=== PATIENT | female | born 1950 | race Caucasian/White ===

== ENCOUNTER 2023-04-21 09:17 | Emergency (ER) | payer OTHER ==
[~2023-04-21] VITALS: Ht 157.5 cm; Wt 85.3 kg
[2023-04-21 09:38] VITALS: BP 209/92; PULSE 59; TEMP 98.2; O2SAT 97
[2023-04-21] MEDS ORDERED: ACETAMINOPHEN EXTRA STRENGTH 500 MG TAB PO ONE (10:40)
[2023-04-21] MEDS ORDERED: LIDOCAINE 5% 1 EA PATCH TP ONE ×2 (10:40→12:39)
[2023-04-21] MEDS ORDERED: IBUPROFEN 600 MG TAB PO ONE (10:40)
[2023-04-21 11:40] LABS: APPEARANCE,URINE CLEAR (CLEAR); BILIRUBIN,URINE NEGATIVE (NEGATIVE); BLOOD, URINE NEGATIVE (NEGATIVE); COLOR,URINE YELLOW (YELLOW); LEUKOCYTE ESTERASE ,URINE NEGATIVE (NEGATIVE); NITRITE, URINE NEGATIVE (NEGATIVE); PROTEIN,URINE 1+ (NEGATIVE); UGLUCOSE NEGATIVE (NEGATIVE); UROBILINOGEN,URINE 0.2 EU/dL (0.2 - 1)
[2023-04-21] MEDS ORDERED: ACETAMINOPHEN EXTRA STRENGTH 500 MG TAB ONE (12:39)
[2023-04-21] MEDS ORDERED: IBUPROFEN 600 MG TAB ONE (12:40)
[2023-04-21] MEDS ORDERED: IBUP-2213 PO (13:19)
[2023-04-21] MEDS ORDERED: LID5T TP (13:19)
[2023-04-21] MEDS ORDERED: CYCL-711 PO (13:19)
[2023-04-21 13:30] VITALS: BP 209/92; PULSE 59; TEMP 98.2; O2SAT 97
== END 2023-04-21 13:30 | disposition home or self-care (01) ==
LOC: MED 09:17
DX: S39.012A Strain of muscle, fascia and tendon of lower back, initial encounter (principal); M19.09 Primary osteoarthritis, other specified site; G31.89 Other specified degenerative diseases of nervous system; I11.9 Hypertensive heart disease without heart failure; E11.9 Type 2 diabetes mellitus without complications; Z86.73 Personal history of transient ischemic attack (TIA), and cerebral infarction without residual deficits; X58.XXXA Exposure to other specified factors, initial encounter; Y93.89 Activity, other specified; Y92.89 Other specified places as the place of occurrence of the external cause; Y99.8 Other external cause status
CPT/HCPCS: 72110; 72170; 81003; 99284; Q0092